=== PATIENT | male | born 1950 | race Caucasian/White ===

== ENCOUNTER 2018-10-18 11:36 | Emergency (ER) | payer SELFPAY ==
[~2018-10-18] VITALS: Ht 172.7 cm; Wt 95.3 kg
[~2018-10-18 11:36] MED LIST: ACETAMINOPHEN PO; AMLO10TA8 PO; CARV12.547 PO; CODEINE PO; DOCU-109 PO; DULO60CA6 PO; FERR324T8 PO; FLUT16SP2 INH; FURO40TA4 PO; GABA600T7 PO; GLIP5TAB10 PO; HYDR-2867 PO; INSU100V5 SUBCUT; LISI40TA PO; POTA10CA PO; RANI300T3 PO; TAMS0.4C97 PO; VALP250C2 PO; WARF2.5T83 PO; WARF2TAB PO
[2018-10-18] MEDS ORDERED: IV NORMAL SALINE 1,000ML 1,000 ML IV ONE (12:00)
--- NOTE | 2018-10-18 12:28 | PHYS DOC ---
Past History Past Medical History: CAD, COPD, CVA, Diabetes, Hypertension, Other Past Surgical History: Coronary Bypass Surgery, Other Smoking: Quit Less Than 1 Year Alcohol Use: None Drug Use: None Adult General Chief Complaint Chief Complaint: OTHER COMPLAINTS HPI HPI 60-year-old male presents because he has not had his insulin in 3 days. Patient states that his vision has been getting worse he cannot see the kwong on his insulin syringes. As result, he has not taken any insulin in the last 3 days. He tells me is on 18 units of long-acting and 4-6 units short-acting before meals. He is a poor historian and he has no written record of this dosing. The patient is at the [facility] and states that he can get assistance with his medications, they just sent him here to get a dose today. Patient mentions some mild shortness of breath but has no other complaints. He denies fever or chills. He is unsure what his sugars have been running. Review of Systems Review of Systems Constitutional: Denies fever or chills [] Eyes: Decreased visual acuity. Denies redness, or eye pain [] HENT: Denies nasal congestion or sore throat [] Respiratory: Shortness of breath [] Cardiovascular: No additional information not addressed in HPI [] GI: Denies abdominal pain, nausea, vomiting, bloody stools or diarrhea [] : Denies dysuria or hematuria [] Musculoskeletal: Denies back pain or joint pain [] Integument: Denies rash or skin lesions [] Neurologic: Denies headache, focal weakness or sensory changes [] Endocrine: Denies polyuria or polydipsia [] All other systems were reviewed and found to be within normal limits, except as documented in this note. Current Medications Current Medications Current Medications Medications (Trade) Dose Ordered Sig/Sonia Start Time Stop Time Status Last Admin Dose Admin Sodium Chloride 1,000 ml @ 1,000 mls/hr 1X ONCE 10/18/18 12:00 10/18/18 12:59 Allergies Allergies Allergies Coded Allergies Type Severity Reaction Last Updated Verified No Known Drug Allergies 06/15/15 No Physical Exam Physical Exam Constitutional: Well developed, well nourished, no acute distress, non-toxic appearance. Uses a wheelchair [] HENT: Normocephalic, atraumatic, bilateral external ears normal, oropharynx moist, no oral exudates, nose normal. [] Eyes: PERRLA, EOMI, conjunctiva normal, no discharge. [] Neck: Normal range of motion, no tenderness, supple, no stridor. [] Cardiovascular:Heart rate regular rhythm, no murmur [] Lungs & Thorax: Bilateral breath sounds clear to auscultation [] Abdomen: Bowel sounds normal, soft, no tenderness, no masses, no pulsatile masses. [] Skin: Warm, dry, no erythema, no rash. [] Back: No tenderness, no CVA tenderness. [] Extremities: No tenderness, no cyanosis, no clubbing, ROM intact, no edema. [] Neurologic: Alert and oriented X 3. [] Psychologic: Affect normal, judgement normal, mood normal. [] Current Patient Data Vital Signs Vital Signs Date Time Temp Pulse Resp B/P (MAP) Pulse Ox O2 Delivery O2 Flow Rate FiO2 10/18/18 11:53 98.5 78 18 97 Room Air Lab Results Laboratory Tests Test 10/18/18 11:50 Glucose (Fingerstick) 278 mg/dL (70-99) H EKG EKG Sinus rhythm, rate 70, leftward axis, no ST elevations or depressions.[] Radiology/Procedures Radiology/Procedures [] Impressions: CHEST PA LATERAL Clinical indications: short of breath COMPARISON: June 15, 2015. Findings: No acute lung infiltrate or pleural effusion or pulmonary edema or lung mass or pneumothorax is seen. The heart size, pulmonary vasculature, mediastinum and both mayank are stable. Osseous structures are intact. Impression: No acute radiographic abnormality is seen. Electronically signed by: Kaylee Driscoll MD (10/18/2018 12:35 PM) [facility] DICTATED AND SIGNED BY: KAYLEE DRISCOLL MD DATE: 10/18/18 9413 CC: TERESSA SINGH DO; PCP,NO ~ Course & Med Decision Making Course & Med Decision Making Pertinent Labs and Imaging studies reviewed. (See chart for details) Patient's EKG is unremarkable. His chest x-ray is unremarkable. His labs showed glucose of 288. I will give him 8 units of regular insulin. The rest of the patient's labs are unremarkable except for a elevated creatinine. Review of his history shows he said significantly higher creatinine in the past. This is likely near his baseline. I advised the patient to get assistance with his medications and talk with his primary physician about switching to insulin pens which have large numbers in her easier to use. Patient is stable discharge at this time. [] Dragon Disclaimer Dragon Disclaimer This electronic medical record was generated, in whole or in part, using a voice recognition dictation system. Departure Departure: Impression: Primary Impression: Hyperglycemia due to type 2 diabetes mellitus Disposition: HOME, SELF-CARE Condition: STABLE Referrals: PCP,NO (PCP) Patient Instructions: Hyperglycemia, [id number] Additional Instructions: You should talk with your primary care physician about changing her insulin over to insulin pens as these have larger numbers and her easier to use. Please get assistance with her insulin until that time. Problem Qualifiers Primary Impression: Hyperglycemia due to type 2 diabetes mellitus Diabetes mellitus half-way insulin use: with half-way use Qualified Codes: E11.65 - Type 2 diabetes mellitus with hyperglycemia; Z79.4 - detention ( current) use of insulin TERESSA SINGH DO Oct 18, 2018 12:28
--- NOTE | 2018-10-18 12:38 | RAD ---
CHEST PA LATERAL Clinical indications: short of breath COMPARISON: June 15, 2015. Findings: No acute lung infiltrate or pleural effusion or pulmonary edema or lung mass or pneumothorax is seen. The heart size, pulmonary vasculature, mediastinum and both mayank are stable. Osseous structures are intact. Impression: No acute radiographic abnormality is seen. Electronically signed by: Andrea Driscoll MD (10/18/2018 12:35 PM) [facility]
[2018-10-18 12:51] LABS: BASO # 0.1 x10^3/uL (0.0-0.2); BASO % 1 % (0-3); EOS # 0.2 x10^3/uL (0.0-0.7); EOS % 3 % (0-3); HEMATOCRIT 40.7 % (39.0-53.0); HEMOGLOBIN 13.6 g/dL (13.0-17.5); LYMPH # 1.2 x10^3/uL (1.0-4.8); LYMPH % 15 % (24-48); MEAN CORPUSCULAR HEMOGLOBIN 27 pg (25-35); MEAN CORPUSCULAR HGB CONC 33 g/dL (31-37); MEAN CORPUSCULAR VOLUME 81 fL (79-100); MONO # 0.9 x10^3/uL (0.0-1.1); MONO % 11 % (0-9); NEUT # 5.6 x10^3uL (1.8-7.7); NEUT % 70 % (31-73); PLATELET COUNT 145 x10^3/uL (140-400); RED BLOOD COUNT 5.01 x10^6/uL (4.30-5.70); RED CELL DISTRIBUTION WIDTH 14.7 % (11.5-14.5); WHITE BLOOD COUNT 7.9 x10^3/uL (4.0-11.0)
[2018-10-18 13:00] LABS: ALBUMIN 3.3 g/dL (3.4-5.0); CALCIUM 8.7 mg/dL (8.5-10.1); CREATININE 1.8 mg/dL (0.7-1.3); GFR 37.7; POTASSIUM 4.2 mmol/L (3.5-5.1); TOTAL BILIRUBIN 0.7 mg/dL (0.2-1.0); TOTAL PROTEIN 6.7 g/dL (6.4-8.2)
[2018-10-18] MEDS ORDERED: INSULIN REGULAR 100 UNIT/ML 3ML VIAL. IV ONE (13:15)
[2018-10-18 13:27] VITALS: BP 175/89
--- NOTE | 2018-10-18 15:16 | EKG ---
[address] [address] Test Date: 2018-10-18 Test Time: 12:05:50 Pat Name: MAGDY CORDOVA Department: Room: Gender: M [employer]: : [id number] Requested By: TERESSA SINGH Order Number: [id number] Reading MD: Aaron Thomas Measurements Intervals [place] Rate: 70 P: 34 ID: [id number] QRS: -19 QRSD: 116 T: 86 QT: 446 QTc: 485 Interpretive Statements SINUS RHYTHM LEFTWARD AXIS QRS(T) CONTOUR ABNORMALITY CONSISTENT WITH INFERIOR INFARCT PROBABLY OLD T ABNORMALITY IN HIGH LATERAL LEADS ABNORMAL ECG Electronically Signed On 10-26-2018 10:46:07 [employer] by Aaron Thomas
== END 2018-10-18 13:50 | disposition home or self-care (01) ==
LOC: ER 11:36
DX: E11.65 Type 2 diabetes mellitus with hyperglycemia (principal); I25.810 Atherosclerosis of coronary artery bypass graft(s) without angina pectoris; J44.9 Chronic obstructive pulmonary disease, unspecified; Z86.73 Personal history of transient ischemic attack (TIA), and cerebral infarction without residual deficits; E11.9 Type 2 diabetes mellitus without complications; I10 Essential (primary) hypertension; Z87.891 Personal history of nicotine dependence; R06.02 Shortness of breath
CPT/HCPCS: 36415; 71046; 80053; 82947; 84484; 85025; 93005; 96361; 96374; 99284; J1815; J7030